=== PATIENT | male | born 1970 | race African-American/Black ===

== ENCOUNTER 2017-06-09 13:35 | Emergency (ER) | payer OTHER ==
[2017-06-09] MEDS ORDERED: Ketorolac 30 MG/ML SDV IM ONE (14:02)
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
[2017-06-09 14:29] VITALS: BP 155/98
== END 2017-06-09 14:53 | disposition home or self-care (01) ==
LOC: VM.ED 13:35
DX: M25.511 Pain in right shoulder (principal)
CPT/HCPCS: 71020; 73000; 96372; 99284; J1885; 99283-GF